=== PATIENT | male | born 1965 | race African-American/Black ===

== ENCOUNTER 2018-04-13 20:26 | Emergency (ER) | payer OTHER ==
[2018-04-13] MEDS: IBUPROFEN 600 MG TAB PO (20:58)
== END 2018-04-13 21:40 | disposition home or self-care (01) ==
LOC: E/R 20:26
DX: S99.922A Unspecified injury of left foot, initial encounter (principal); I10 Essential (primary) hypertension; F17.210 Nicotine dependence, cigarettes, uncomplicated; X58.XXXA Exposure to other specified factors, initial encounter; Y92.9 Unspecified place or not applicable
CPT/HCPCS: 73630; 73630-LT; 99283-25